=== PATIENT | female | born 1995 | race Caucasian/White ===

== ENCOUNTER 2017-05-17 09:54 | Outpatient (CLI) | payer BC ==
[~2017-05-17] VITALS: Ht 165.1 cm; Wt 75.7 kg
[~2017-05-17 09:54] MED LIST: CEPH-13 PO; LOR5/325 PO
[2017-05-17 10:38] LABS: PLATELET COUNT, AUTOMATED 217 K/uL (150-450)
[2017-05-17] MEDS: LR(*) 1000 ML BAG 1,000 ML IV PRN ×2 (10:42→11:40)
[2017-05-17 11:49] VITALS: BP 129/69; Ht 165.1 cm; Wt 75.7 kg
--- NOTE | 2017-05-17 13:10 | History & Physical ---
History of Present Illness Age of Patient: 21 : 1 Para or TPAL: 0 Estimated Gestational Age: 33.0 Chief Complaint Abdominal pain History of Present Illness Pt is a 21 y/o @ 33 weeks gestation who presents to clinic with a chief complaint of abdominal pain. Pt reports that while she was working she had significant lower abdominal pain that went the the left side. Pt reports the pain was excrutiating and felt like she was getting stabbed. Denies any bleeding. Denies any fevers or chills. Good movement. No cramps or contractions. History Obstetrical History: Past Medical History: Allergic to Sulfa Allergies: Coded Allergies: Sulfa (Sulfonamide Antibiotics) (Verified Allergy, Unknown, HIVES, 05/17/17) Uncoded Allergies: ANTIBIOTIC (Adverse Reaction, Mild, 09/11/16) Med Rec Home Meds Active Scripts Hydrocodone Bit/Acetaminophen (HYDROCODON-ACETAMINOPHEN 5-325) 1 Each Tablet, 1 EACH PO Q4-6H Y for PAIN, #12 TAB 0 Refills TAKE ONE TABLET BY MOUTH EVERY 4-6 HOURS NEEDED FOR PAIN Prov:RUFINO PETIT MD 09/11/16 Cephalexin (KEFLEX) 500 Mg Capsule, 500 MG PO Q6H, #20 CAP 0 Refills TAKE ONE CAPSULE BY MOUTH EVERY SIX HOURS Prov:RUFINO PETIT MD 09/11/16 Review of Systems All Systems Reviewed/Normal: Yes, Except as Noted Constitutional: No Fever, No Weight Loss, No Weight Gain, No Chills, No Night Sweats, No Other Neurological: No Syncope, No Confusion, No Weakness, No Dizziness, No Slurred Speech, No Other Eyes: No Vision Change, No Loss of Vision, No Photophobia, No Other ENT: No Hearing Loss, No Sinus Congestion, No Sore Throat, No Ear Ache, No Tinnitus, No Other Cardiovascular: No Chest Pain, No Palpitations, No Orthostatic Hypotension, No Other Respiratory: No Shortness of Breath, No Cough, No Wheezing, No Other Gastrointestinal: No Nausea, No Vomiting, No Diarrhea, No Dysphagia, No Constipation, No Early Satiety, No Hematemesis, No Hematochezia, No Melena, No Abdominal Pain, No Other Genitourinary: No Dysuria, No Hematuria, No Urinary Incontinence, No Other Musculoskeletal: No Pain, No Sprain, No Strain, No Impaired Mobility, No Other Psychiatric: No Depression, No Anxiety, No Other Exam General Exam Vital Signs Vital Signs Date Time Temp Pulse Resp B/P (MAP) Pulse Ox O2 Delivery O2 Flow Rate FiO2 05/17/17 11:49 98.1 104 16 129/69 (89) Room Air General Apperance: Alert/Awake/No Acute Distress Neuro: No Gross deficits Eyes: Normal Extraocular Movement & Vison, PERRLA ENT: Normal Cardiovascular: Regular Rate and Rhythm Respiratory: No Respiratory Distress, Clear to Auscultation Abdomen: Soft, Non-Tender, Non-Distended, Gravid - Non-Tender : Normal Musculoskeletal: No Weakness/Pain Extremities: No Cyanosis,Clubbing or Edema Integumentary: Skin Intact without Lesions or Rash Psychological: Alert & Oriented X3, Appropriate Mood & Affect Cervical Dialation: 0.5 Cervical Effacement (%): 20 Cervical Consistency: Firm Cervical Position: Posterior Station: -3 Fetus Heart Tones: 130 Heart Tone Variabilty: Moderate FHT Accelerations: Present FHT Decelerations: None FHT Category: I Medical Decision Making Data Points Result Diagram: 05/17/17 1030 Pre-Admit Course Medical Record Review: Yes VTE Prophylasis: Adult Deep Vein Thrombosis/Pulmonary: No Assessment and Plan [employer] Assessment: Stable Problems: (1) Urinary tract infection Status: Acute Assessment & Plan: IV fluids and 1 gm ceftriaxone, Urine culture. D/c home with macrobid RX. Copies to: CHARLOTTE VALENZUELA DO Problem Qualifiers (1) Urinary tract infection: Urinary tract infection type: acute cystitis CHARLOTTE VALENZUELA DO May 17, 2017 13:10
[2017-05-17] MEDS ORDERED: cefTRIAXone(*) 1 GM VIAL 1 GM in NS(*) 0.9% 100 ML ADDVANT BAG 100 ML IVPB ONE (13:15)
[2017-05-17] MEDS ORDERED: PREN-127 PO (14:28)
== END 2017-05-17 14:22 | disposition home or self-care (01) ==
LOC: OB 09:54 → UNDOADMOB 09:54 → OB 09:54 → L&D 09:54 → UNDODISOB 14:22 → L&D 14:22 → EDSTATUS 05-19 16:15
PROVIDERS: ATTEND Student in an Organized Health Care Education/Training Program
DX: O23.43 Unspecified infection of urinary tract in pregnancy, third trimester (principal); Z3A.33 33 weeks gestation of pregnancy
CPT/HCPCS: 81001; 84112; 85025; 87077; 87088; 87186; 99213; J0696; J7050; J7120; G0378; G0379

== ENCOUNTER 2017-07-03 22:34 | Outpatient (CLI) | payer BC ==
[2017-05-17 11:49] VITALS: BMI 27.8
[~2017-07-03 22:34] MED LIST changes: +PREN-127 PO
[2017-07-03 23:15] VITALS: BP 124/75
== END 2017-07-04 00:13 | disposition home or self-care (01) ==
LOC: L&D 22:34 → UNDOADMOB 22:34 → OB 22:34 → L&D 07-04 00:13 → UNDODISOB 07-04 00:13 → EDSTATUS 07-05 10:47
PROVIDERS: ATTEND Student in an Organized Health Care Education/Training Program
DX: O47.1 False labor at or after 37 completed weeks of gestation (principal); Z3A.39 39 weeks gestation of pregnancy
CPT/HCPCS: 81001; 84112; 99213; G0378; G0379

== ENCOUNTER 2017-07-09 18:57 | Inpatient (IN) | payer BC ==
[2017-05-17 11:49] VITALS: Ht 160 cm
[2017-07-09] MEDS ORDERED: FAMOTIDINE(*) 20MG/50ML PREMIX 50 ML IVPB PRN (19:02)
[2017-07-09] MEDS ORDERED: METOCLOPRAMIDE 10 MG/2 ML SDV IVP PRN (19:05)
[2017-07-09] MEDS ORDERED: FLUSH 10 ML SYR IVP PRN (19:05)
[2017-07-09] MEDS ORDERED: fentaNYL CITR 100 MCG/2 ML AMP IVP PRN (19:05)
[2017-07-09] MEDS ORDERED: LIDOCAINE/SOD BICARB 8.4% SYR SC PRN (19:05)
[2017-07-09] MEDS ORDERED: DINOPROSTONE 10 MG INSERT PV ONE (19:05)
[2017-07-09] MEDS ORDERED: LIDOCAINE 1% LOCAL 300 MG/30ML INJ PRN (19:05)
[2017-07-09 19:44] LABS: PLATELET COUNT, AUTOMATED 190 K/uL (150-450)
[2017-07-09] MEDS ORDERED: DLR(*) 1000 ML BAG 1,000 ML IV ONE (20:04)
[2017-07-09] MEDS ORDERED: LR(*) 1000 ML BAG 1,000 ML ONE (20:05)
[2017-07-09 20:30] VITALS: BP 116/70
[2017-07-10] MEDS ORDERED: DINOPROSTONE 10 MG INSERT PV ONE (00:06)
[2017-07-10] MEDS ORDERED: OXYTOCIN 30 UNIT/D5LR 500 ML 500 ML IV PRN (02:59)
[2017-07-10] MEDS ORDERED: ONDANSETRON 4 MG/2 ML VIAL IVP PRN (03:00)
[2017-07-10] MEDS ORDERED: cefOXitin SOD 2 GM VIAL 2 GM in NS(*) 0.9% 100 ML BAG 100 ML IVPB PRN (03:00)
[2017-07-10] MEDS ORDERED: TERBUTALINE SULF 1 MG/ML VIAL SUBQ PRN (03:00)
[2017-07-10] MEDS ORDERED: ACETAMINOPHEN 500 MG TAB PO PRN (03:05)
[2017-07-10] MEDS: DLR(*) 1000 ML BAG 1,000 ML IV PRN ×2 (03:55→12:23)
[2017-07-10] MEDS: LR(*) 1000 ML BAG 1,000 ML IV PRN (06:40)
--- NOTE | 2017-07-10 07:31 | History & Physical ---
History of Present Illness Age of Patient: 21 : 2 Para or TPAL: 0 EDC per LMP: July 05, 2017 Estimated Gestational Age: 40.5 Chief Complaint IOL History of Present Illness The patient is a 21 year old 2 para 0 admitted at 40 5/7 weeks estimated gestational age with an estimated date of delivery 07/05/17. Patient is admitted for induction post term. No vaginal bleeding. Good movement and occasional contractions. She was evaluated for active labor. She had an uncomplicated course. Her record was reviewed. History Allergies: Coded Allergies: Sulfa (Sulfonamide Antibiotics) (Verified Allergy, Unknown, HIVES, 05/17/17) Uncoded Allergies: ANTIBIOTIC (Adverse Reaction, Mild, 09/11/16) Med Rec Home Meds Reported Medications Vits W-Ca,Fe,Fa(<1MG) ( VITAMINS) 1 Each Tablet, 1 EACH PO DAILY, TAB 05/17/17 Exam General Exam Vital Signs Vital Signs Date Time Temp Pulse Resp B/P (MAP) Pulse Ox O2 Delivery O2 Flow Rate FiO2 07/09/17 20:30 98.5 99 18 116/70 (85) 95 Room Air Cardiovascular: Regular Rate and Rhythm Respiratory: Clear to Auscultation Abdomen: Gravid - Non-Tender Extremities: No Edema Cervical Dialation: 1 (RN) Cervical Effacement (%): 80 Cervical Position: Posterior Station: -2 Presentation: Vertex Uterine Contractions(Q min): 3 Fetus Heart Tones: 120 FHT Category: I Medical Decision Making Data Points Result Diagram: 07/09/171918 Assessment and Plan Problems: (1) Post-dates Assessment & Plan: cervadil placed for induction agent, will monitor for cervical change Copies to: ROSA HOLDEN MD Problem Qualifiers (1) Post-dates : Post-term type: 40-42 weeks gestation Qualified Codes: O48.0 - Post -term ROSA HOLDEN MD Jul 10, 2017 07:30
[2017-07-10] MEDS ORDERED: BUPIVACAINE 0.5% INJ 30ML VIAL EPI PRN (10:45)
[2017-07-10] MEDS ORDERED: LIDOCAINE/PF 2% 200MG/10ML AMP 200 MG/10 ML AMPUL EPI PRN (10:45)
[2017-07-10] MEDS ORDERED: FENTANYL/ROPIVACAINE 100 ML BAG EPI PRN (10:45)
[2017-07-10] MEDS ORDERED: ePHEDrine 25 MG/5 ML DISP.SYR IVP PRN (10:45)
[2017-07-10] MEDS ORDERED: LIDO/EPI 2% MPF 1:200,000 20ML EPI PRN (10:45)
[2017-07-10] MEDS ORDERED: BUPIVACAINE 0.25% MPF INJ EPI PRN (10:45)
[2017-07-10] MEDS ORDERED: EPIDURAL KEYS XX PRN (12:00)
[2017-07-10] MEDS ORDERED: LIOTHYRONINE SODIUM 25 MCG TAB PO ONE (14:00)
[2017-07-10] MEDS ORDERED: MISOPROSTOL 25 MCG CAP ONE (14:08)
--- NOTE | 2017-07-10 14:13 | Labor Progress Note ---
Labor Subjective Progress Notes Subjective FEELING CONTRACTIONS OCCASIONALLY Vaginal Discharge/Fluid: No Bloody Show Labor Pain: Mild Labor Objective Vital Signs Vital Signs Date Time Temp Pulse Resp B/P (MAP) Pulse Ox O2 Delivery O2 Flow Rate FiO2 07/09/17 20:30 98.5 99 18 116/70 (85) 95 Room Air Cervical Dialation: 1 Cervical Effacement (%): 75 Cervical Consistency: Moderate Cervical Position: Mid Station: -1 Presentation: Vertex Uterine Contractions(Q min): 7 Uterine Contraction Strength: Mild Fetus Heart Tones: 130 Heart Tone Variabilty: Moderate FHT Accelerations: 15X15 FHT Category: I Other Result Diagram: 07/09/171918 Assessment and Plan Problems: (1) Post-dates Assessment & Plan: NO CHANGE FROM CERVADIL, CYTOTEC 25 PLACED WILL MONITOR FOR CHANGE Problem Qualifiers (1) Post-dates : Post-term type: 40-42 weeks gestation Qualified Codes: O48.0 - Post -term ROSA HOLDEN MD Jul 10, 2017 14:13
[2017-07-10] MEDS: fentaNYL CITR 100 MCG/2 ML AMP IT PRN (21:38)
[2017-07-11] VITALS (10 sets, daily range): BP systolic 104–125; BP diastolic 70–82
[2017-07-11] MEDS ORDERED: MISOPROSTOL 25 MCG CAP PV ONE (00:20)
[2017-07-11] MEDS ORDERED: MISOPROSTOL 25 MCG CAP ONE (00:34)
[2017-07-11] MEDS: DLR(*) 1000 ML BAG 1,000 ML IV PRN ×2 (01:32→12:26)
[2017-07-11] MEDS ORDERED: ZOLPIDEM TARTRATE 5 MG TAB PO ONE (02:20)
[2017-07-11] MEDS ORDERED: OXYTOCIN 30 UNIT/D5LR 500 ML 500 ML IV PRN ×3 (04:50→21:08)
[2017-07-11] MEDS: fentaNYL CITR 100 MCG/2 ML AMP IT PRN (07:29)
--- NOTE | 2017-07-11 09:06 | Anesthesia OB Pre-Anes Eval ---
History of Present Illness Anesthesia Start Date: Jul 11, 2017 Anesthesia Start Time: 07:40 OB Anesthesia Diagnosis: induction - medical Current Complication: other (post dates) Complications: None known EDC: July 04, 2017 : 2 Para: 0 Vital Signs: Vital Signs Date Time Temp Pulse Resp B/P (MAP) Pulse Ox O2 Delivery O2 Flow Rate FiO2 07/09/17 20:30 98.5 99 18 116/70 (85) 95 Room Air Pain Ratin Heart Tones: WNL Result Diagram: 07/09/17 1919 Height (Inches): 63 Weight (Pounds): 167 BMI Calculated: 27.79 Past Medical History Surgical History: other (correction of spinal bifida as an infant, no problems now) Previous Anesthesia: general Attended Childbirth Classes?: No Hx Anesthesia Reactions: No Hx Family Anesthesia Reaction: No Current Medications: pitocin Home Meds Reported Medications Vits W-Ca,Fe,Fa(<1MG) ( VITAMINS) 1 Each Tablet, 1 EACH PO DAILY, TAB 05/17/17 Allergies: Coded Allergies: Sulfa (Sulfonamide Antibiotics) (Verified Allergy, Unknown, HIVES, 05/17/17) Uncoded Allergies: ANTIBIOTIC (Adverse Reaction, Mild, 09/11/16) Anesthesia OB ROS Neurological: No migraines/headaches, No seizures, No neuropathy ENT: Denies Tooth caps, Denies Loose teeth, Denies Chipped teeth, Denies Dentures, Denies Bridges, Denies Retainers, Denies Veneers, Denies Implants, Denies Tongue ring Pulmonary: No asthma, smoker (pks/day/yrs) ("quiting"), No other Airway Class: ll Cardiovascular ROS: No edema, No arrhythmia GI ROS: clear liquids Last Solids Date: Jul 10, 2017 Last Solids Time: 22:00 ROS: No Herpes, No STD(s), No Liver Disease, No Renal Disease Endocrine ROS: No diabetes, No gestational diabetes, No thyroid disorder Musculoskeletal ROS: No low back pain, No low back injury, No scoliosis, other (denies any back problems) ASA Classification: 2 Assessment and Plan Anesthesia Plan: CSE Assessment Past Medical, Surgical, Family and Obstetric Histories reviewed. Please see ACOG chart. Epidural anesthesia risks, complications and benefits explained to patient's satisfaction for labor and vaginal delivery and/or section. General anesthesia risks and benefits explained to patient's satisfaction. Questions invited, none asked. MALIK BLEVINS CRNA Jul 11, 2017 09:06
--- NOTE | 2017-07-11 09:27 | Labor Progress Note ---
Labor Subjective Progress Notes Subjective COMFORTABLE WITH EPIDURAL Vaginal Discharge/Fluid: Clear Fluid Labor Pain: Comfortable Labor Objective Vital Signs Vital Signs Date Time Temp Pulse Resp B/P (MAP) Pulse Ox O2 Delivery O2 Flow Rate FiO2 07/09/17 20:30 98.5 99 18 116/70 (85) 95 Room Air Cervical Dialation: 4 Cervical Effacement (%): 95 Cervical Consistency: Soft Cervical Position: Anterior Station: -1 Presentation: Vertex Uterine Contractions(Q min): 5 Uterine Contraction Strength: Moderate Fetus Heart Tones: 120 Heart Tone Variabilty: Moderate FHT Accelerations: 15X15 FHT Category: I Other Result Diagram: 07/09/171918 Assessment and Plan Problems: (1) Post-dates (2) Active labor at term Assessment & Plan: IUPC PLACED WILL MONITOR FOR CERVICAL CHANGE Problem Qualifiers (1) Post-dates : Post-term type: 40-42 weeks gestation Qualified Codes: O48.0 - Post -term ROSA HOLDEN MD Jul 11, 2017 09:27
--- NOTE | 2017-07-11 09:30 | Procedure Note ---
Anesthetic Placement Note Anesthesia Plan: CSE Permit for Anesthesia Signed: Yes Anesthesia Technique: Patient Sitting Anesthesia Prep: Chlorhexidine Interspace: L 3-4 Local Anesthetic: 1% Lidocaine, 25 Gauge Needle Amount Local - cc's: 2 Anesthesia Attempts: 1 Loss of Resistance: Air Depth of VIVI (cm): 4 Epidural Needle Placement: No CSF, No Blood, No Parasthesia Intrathecal Needle: 27 Gauge Pencan Cerebral Spinal Fluid: Yes, Clear Catheter Insertion (cm): 6 Catheter Type: Prieto - Spring Wound Epidural Dressing: Tegaderm, Tape, Adhesive [place] Anesthesia Tray: Lot Number ([id number]), Expiration Date (2018-09-08), Reference Number ([id number]) Anesthesia Medications: Intrathecal Dose: mcg Fentanyl (15), mg Marcaine MPF (1.75), Time (0755) Epidural Test Dose: 1.5 Lido/Epi (1:200,000), Dose - mL (2), Time (0807), Negative Epidural Loading Dose: 0.2% Ropivicaine, With Fentanyl 2mcg/ml, Dose - ml (5), Time (0820) Epidural Infusion: 0.2% Ropivicaine, With Fentanyl 2mcg/ml, Start Time: (0821) Epidural Pump Setting: Bolus Dose - mL (5), Lockout - Minutes (20), Maintenance Rate - mL/hr (6), Maximum per Hour - mL (21) Complications: None Comment: Vital signs stable. Patient comfortable and condition stable. Mild itching noted. MALIK BLEVINS CRNA Jul 11, 2017 09:30
--- NOTE | 2017-07-11 09:40 | Anesthesia Progress Note ---
Progress/Maintenance Anesthesia Note Date: Jul 11, 2017 Anesthesia Note Time: 09:30 Pain Intensity: 0 Pump: Off Sensory Level: T-12 Motor Level: Bending Knees-Bilateral, Other (legs heavy) Dilatation: 4 Position: Left, Tilt Assessment and Plan Anesthesia Plan: CSE Assessment Pt. requesting less epidural medication. Pump turned off and pt. instructed to notify RN when she starts to feel contractions again. MALIK BLEVINS CRNA Jul 11, 2017 09:40
[2017-07-11] MEDS: LR(*) 1000 ML BAG 1,000 ML IV PRN ×2 (12:26→18:10)
--- NOTE | 2017-07-11 12:29 | Anesthesia Progress Note ---
Progress/Maintenance Anesthesia Note Date: Jul 11, 2017 Anesthesia Note Time: 12:25 Pain Intensity: 0 Pump: On Pump Rate (ML/HR): 4 Motor Level: Bending Knees-Bilateral Dilatation: 6 Position: Left, Tilt Assessment and Plan Assessment Pt. thinks she is starting to feel some "pressure", not specifically contraction type. Pump restarted at 4 ml/hr. MALIK BLEVINS CRNA Jul 11, 2017 12:29
--- NOTE | 2017-07-11 13:02 | Anesthesia Progress Note ---
Progress/Maintenance Anesthesia Note Date: Jul 11, 2017 Anesthesia Note Time: 12:50 Pain Intensity: 8 Pump: On Pump Rate (ML/HR): 4 Sensory Level: L2 Motor Level: Bending Knees-Bilateral Dilatation: 7 Position: Left, Tilt Drug Bolus: 0.2% Ropivicaine, Fentanyl 2mcg/ml, Other (Fentenyl 50 mcgs) Assessment and Plan Assessment Pt. states she is feeling more contractions now, rates pain as a "8". Bolus per pump and additional fentanyl given. MALIK BLEVINS CRNA Jul 11, 2017 13:02
--- NOTE | 2017-07-11 15:15 | Labor Progress Note ---
Labor Subjective Progress Notes Subjective have been receiving updates of adequate progress, patient comfortable with epidural Vaginal Discharge/Fluid: Bloody Show Labor Pain: Comfortable Labor Objective Vital Signs Vital Signs Date Time Temp Pulse Resp B/P (MAP) Pulse Ox O2 Delivery O2 Flow Rate FiO2 07/09/17 20:30 98.5 99 18 116/70 (85) 95 Room Air Cervical Dialation: 7 Cervical Effacement (%): 100 Cervical Consistency: Soft Cervical Position: Anterior Station: +1 Presentation: Vertex Uterine Contractions(Q min): 3 Uterine Contraction Strength: Strong Fetus Heart Tones: 120 Heart Tone Variabilty: Moderate FHT Accelerations: 15X15 FHT Category: I Other Result Diagram: 07/09/179 Assessment and Plan Problems: (1) Post-dates (2) Active labor at term Assessment & Plan: patient making progress, will monitor for change in cervix Problem Qualifiers (1) Post-dates : Post-term type: 40-42 weeks gestation Qualified Codes: O48.0 - Post -term ROSA HOLDEN MD Jul 11, 2017 15:15
--- NOTE | 2017-07-11 16:42 | Labor Progress Note ---
Labor Subjective Progress Notes Subjective reports feeling pressure Vaginal Discharge/Fluid: Bloody Show Labor Objective Vital Signs Vital Signs Date Time Temp Pulse Resp B/P (MAP) Pulse Ox O2 Delivery O2 Flow Rate FiO2 07/09/17 20:30 98.5 99 18 116/70 (85) 95 Room Air Cervical Dialation: 8 Cervical Effacement (%): 100 Cervical Consistency: Soft Cervical Position: Anterior Station: +1 Presentation: Vertex Uterine Contractions(Q min): 3 Uterine Contraction Strength: Strong Fetus Heart Tones: 130 Heart Tone Variabilty: Moderate FHT Accelerations: 15X15 FHT Category: I Other Result Diagram: 07/09/17 1919 Assessment and Plan Problems: (1) Post-dates (2) Active labor at term Assessment & Plan: continues to make cervical change will continue to monitor progress in labor Problem Qualifiers (1) Post-dates : Post-term type: 40-42 weeks gestation Qualified Codes: O48.0 - Post -term ROSA HOLDEN MD Jul 11, 2017 16:42
--- NOTE | 2017-07-11 17:36 | Labor Progress Note ---
Labor Subjective Progress Notes Subjective feeling pressure Vaginal Discharge/Fluid: Bloody Show, Green Tinged Fluid Labor Pain: Mild Labor Objective Vital Signs Vital Signs Date Time Temp Pulse Resp B/P (MAP) Pulse Ox O2 Delivery O2 Flow Rate FiO2 07/09/17 20:30 98.5 99 18 116/70 (85) 95 Room Air Cervical Dialation: 9 Station: +1 Presentation: Vertex Uterine Contractions(Q min): 4 Uterine Contraction Strength: Strong Fetus Heart Tones: 120 Heart Tone Variabilty: Moderate FHT Accelerations: 15X15 FHT Category: I Other Result Diagram: 07/09/171918 Assessment and Plan Problems: (1) Post-dates (2) Active labor at term Assessment & Plan: continues to make cervical change, suspect LOP, will continue to monitor for change and descent of vertex Problem Qualifiers (1) Post-dates : Post-term type: 40-42 weeks gestation Qualified Codes: O48.0 - Post -term ROSA HOLDEN MD Jul 11, 2017 17:36
--- NOTE | 2017-07-11 18:56 | Anesthesia Progress Note ---
Progress/Maintenance Anesthesia Note Date: Jul 11, 2017 Anesthesia Note Time: 18:30 Pain Intensity: 6 Pump: On Pump Rate (ML/HR): 6 Sensory Level: T-12 Motor Level: Bending Knees-Bilateral Dilatation: 9 Position: Right, Tilt Drug Bolus: 0.5% Marcaine (3 ml), Other (Fentanyl 35 mcgs) Assessment and Plan Assessment Pt. states she is having more "pressure", epidural bolus per machine given. 15 minutes later, pt. does not feel any improvement in "pressure". Manual bolus given. At 1845, pt. is visiting and joking with family, states she now feels better. MALIK BLEVINS CRNA Jul 11, 2017 18:56
--- NOTE | 2017-07-11 19:06 | Labor Progress Note ---
Labor Subjective Progress Notes Subjective feeling pressure Vaginal Discharge/Fluid: Green Tinged Fluid Labor Pain: Mild Labor Objective Vital Signs Vital Signs Date Time Temp Pulse Resp B/P (MAP) Pulse Ox O2 Delivery O2 Flow Rate FiO2 07/09/17 20:30 98.5 99 18 116/70 (85) 95 Room Air Cervical Dialation: 9 Station: +1 Presentation: Vertex Uterine Contractions(Q min): 4 Uterine Contraction Strength: Strong Fetus Heart Tones: 130 Heart Tone Variabilty: Moderate FHT Accelerations: 15X15 FHT Category: I Other Result Diagram: 07/09/171918 Assessment and Plan Problems: (1) Post-dates (2) Active labor at term Assessment & Plan: feeling presure, no change in cervix, LOP, unable to manually rotate. patient desire to proceed with c section for ftp Problem Qualifiers (1) Post-dates : Post-term type: 40-42 weeks gestation Qualified Codes: O48.0 - Post -term ROSA HOLDEN MD Jul 11, 2017 19:06
[2017-07-11] MEDS ORDERED: OXYTOCIN 10 UNIT/ML SDV ONE (19:42)
[2017-07-11] MEDS ORDERED: KETOROLAC 30 MG/ML VIAL ONE (19:42)
[2017-07-11] MEDS ORDERED: MORPHINE PF 5 MG/10 ML AMP ONE (19:42)
[2017-07-11] MEDS ORDERED: MEPERIDINE 50 MG/ML SYR ONE (19:48)
[2017-07-11] MEDS ORDERED: FAMOTIDINE(*) 20MG/50ML PREMIX 50 ML IVPB PRN (21:08)
[2017-07-11] MEDS ORDERED: MEASLES,MUMP,RUBELLA VAC 0.5ML SUBQ ONE (21:10)
[2017-07-11] MEDS ORDERED: METOCLOPRAMIDE 10 MG/2 ML SDV IV PRN (21:10)
[2017-07-11] MEDS ORDERED: DIPHENOX/ATROPINE 2.5-0.025MG PO PRN (21:10)
[2017-07-11] MEDS ORDERED: ONDANSETRON 4 MG/2 ML VIAL IV PRN (21:10)
[2017-07-11] MEDS ORDERED: PROMETHAZINE 25 MG/ML 1 ML AMP IVP PRN (21:10)
[2017-07-11] MEDS ORDERED: FLUSH 10 ML SYR IVP PRN (21:10)
[2017-07-11] MEDS ORDERED: INFLUENZA VIRUS VAC 0.5 ML SYR IM ONLY ONE (21:10)
[2017-07-11] MEDS ORDERED: DIPHTH/TETANUS/ACEL. PERTUSSIS IM ONLY ONE (21:10)
[2017-07-11] MEDS ORDERED: LANOLIN OINT 7 GM TUBE TP PRN (21:10)
--- NOTE | 2017-07-11 21:17 | Post Operative Note ---
Operative Note - COLLECTIONS ANALYST Operative Day Date: Jul 11, 2017 Time: 20:40 Physicians Surgeon: ADINA Supervisor Slitting And Shipping: KEENAN HERNANDEZ RN FA Anesthesia: FELICITY Diagnosis Pre-Op Diagnosis: IUP AT 40 6/7 FAILURE TO PROGRESS Post-Op Diagnosis: SAME UTERINE ATONY Procedure Findings: MALE APGARS 8,9 WT. 3502 GMS ATONIC UTERUS 3 DOSES OF METHERGINE, 1 DOSE OF HEMABATE 800 CYTOTEC MT PITOCIN [id number] Procedure(s): PLTCS Complications: UTERINE ATONY Fluids Fluids: 1000 CC LR IV 100 CC UOP Estimated Blood Loss: 1000 CC Dictated Date OP Note Dictated: Jul 11, 2017 Time OP Note Dictated: 21:25 Copies to: ROSA HOLDEN MD, JOHN MD Jul 11, 2017 21:16
--- NOTE | 2017-07-11 21:28 | Anesthesia Progress Note ---
Progress/Maintenance Anesthesia Note Date: Jul 11, 2017 Anesthesia Note Time: 19:00 Pain Intensity: 0 Pump: Off Dilatation: 9 Position: Left, Tilt Assessment and Plan Assessment Changing to E C/Section. Dosing with 2% Lidocaine with Epi in 5 ml increments. Level of T-4 after only 10 ml. Pt. very restless and upset by her "shaking". Reassurance given. To OR per bed, stopping in PACU, waiting on OR crew. Anesthesia Stop Day: Jul 11, 2017 Anesthesia Stop Time: 21:20 Epidural Catheter Removal: Removed Catheter Intact, Yes, Removed by: (Purnima Tate CRNA) Removal Date: Jul 11, 2017 Removal Time: 21:05 MALIK TATE CRNA Jul 11, 2017 21:27
[2017-07-11] MEDS ORDERED: NALBUPHINE HCL 10 MG/ML AMP IVP PRN (21:30)
[2017-07-11] MEDS ORDERED: diphenhydrAMINE 25 MG CAP PO PRN (21:30)
[2017-07-11 21:56] LABS: PLATELET COUNT, AUTOMATED 159 K/uL (150-450)
[2017-07-12] VITALS (8 sets, daily range): BP systolic 109–122; BP diastolic 70–85
[2017-07-12] MEDS: MISOPROSTOL 200 MCG TAB PO SCH ×4 (01:15→18:13)
[2017-07-12] MEDS: DLR(*) 1000 ML BAG 1,000 ML IV PRN ×2 (01:15→09:25)
[2017-07-12] MEDS: cefOXitin/DEX(*) 1GM/50ML PREM 50 ML IVPB SCH ×4 (01:15→18:12)
[2017-07-12 05:57] LABS: PLATELET COUNT, AUTOMATED 128 K/uL (150-450)
[2017-07-12] MEDS: KETOROLAC 30 MG/ML VIAL IVP SCH ×2 (05:57→12:39)
--- NOTE | 2017-07-12 08:39 | OB/GYN Progress Note ---
OB Subjective Progress Notes Subjective Pain controlled, Tolerating diet and some dizziness the first time she sat up. Baby . Normal lochia. GI: POS Flatus, NEG Nausea, NEG Vomiting Pain: Mild OB Objective Physical Exam Vital Signs Date Time Temp Pulse Resp B/P (MAP) Pulse Ox O2 Delivery O2 Flow Rate FiO2 07/12/17 04:30 98.9 96 16 109/70 (83) 94 Room Air 07/12/17 01:45 2.0 Cardiovascular: Regular Rate and Rhythm Respiratory: Clear to Auscultation Abdomen: Fundus Firm Extremities: No Edema Result Diagram: 07/12/17 0545 Assessment and Plan Problems: (1) Post-dates (2) Active labor at term (3) care following delivery Assessment & Plan: Pain controlled, Tolerating diet and some dizziness the first time she sat up. Baby . Normal lochia. Will ambulate later today (4) Acute blood loss anemia Assessment & Plan: WILL TREAT WITH IRON AND MONITOR FOR SYMPTOMS OF ANEMIA Problem Qualifiers (1) Post-dates : Post-term type: 40-42 weeks gestation Qualified Codes: O48.0 - Post -term ROSA HOLDEN MD Jul 12, 2017 08:39
[2017-07-12] MEDS: DOCUSATE CALCIUM 240 MG CAP PO SCH ×2 (09:00→22:05)
[2017-07-12] MEDS: FERROUS SULFATE 325 MG TAB PO SCH ×2 (09:04→18:13)
[2017-07-12] MEDS: SIMETHICONE 80 MG CHEW CHEW SCH ×4 (09:04→22:05)
[2017-07-12] MEDS: FAMOTIDINE 20 MG TAB PO SCH ×2 (09:04→22:05)
[2017-07-12] MEDS ORDERED: OXYC-373 PO (09:05)
[2017-07-12] MEDS ORDERED: IBUP800T37 PO (09:05)
[2017-07-12] MEDS ORDERED: FERR-41 PO (09:05)
[2017-07-12] MEDS ORDERED: DOCU240C67 PO (09:05)
--- NOTE | 2017-07-12 09:07 | OB/GYN Discharge Summary ---
Discharge Summary Reason for Hosp/Final Diag: (1) Post-dates (2) Active labor at term (3) care following delivery Hospital Course & Plan: IOL, SLOW PROGRESS, PROGRESSED TO 9 CM THEN FAILED TO PROGRESS, OP, PLTCS WITH UTERINE ATONY,ON DAY 3 , Pain controlled, Tolerating diet and activity. Baby . Normal lochia. (4) Acute blood loss anemia Lates Vital Signs Vital Signs Date Time Temp Pulse Resp B/P (MAP) Pulse Ox O2 Delivery O2 Flow Rate FiO2 07/12/17 04:30 98.9 96 16 109/70 (83) 94 Room Air 07/12/17 01:45 2.0 Weight (Pounds): 167 Result Diagram: 07/12/17 0545 Condition: Improved Discharge: Home, Self [facility] Meds Active Scripts Oxycodone Hcl/Acetaminophen (OXYCODONE-ACETAMINOPHEN 5-325) 1 Each Tablet, 1-2 EACH PO Q4H Y for PAIN, #30 TAB 0 Refills TAKE 1-2 TABLET NEEDED FOR PAIN - NO CLOSER THAN EVERY 4 HOURS. Prov:ROSA BRUNNER MD 07/12/17 Ibuprofen (IBUPROFEN) 800 Mg Tablet, 1 TAB PO Q8H, #30 TAB 0 Refills Take with food every 8 hours. Prov:ROSA BRUNNER MD 07/12/17 Ferrous Sulfate (FERROUS SULFATE) 325 Mg Tablet.dr, 1 TAB PO BID, #60 TAB 0 Refills Prov:ROSA BRUNNER MD 07/12/17 Docusate Calcium (DOCUSATE CALCIUM) 240 Mg Capsule, 1 CAP PO BID, #30 CAPSULE 0 Refills Prov:ROSA BRUNNER MD 07/12/17 Reported Medications Vits W-Ca,Fe,Fa(<1MG) ( VITAMINS) 1 Each Tablet, 1 EACH PO DAILY, TAB 05/17/17 Follow up with: Dr. Brunner [phone] Follow up in: 6 wks PP or PO, 2 wks PO Discharge Diet: As Tolerates Discharge Activity: Pelvic Rest Copies to: ROSA BRUNNER MD Problem Qualifiers (1) Post-dates : Post-term type: 40-42 weeks gestation Qualified Codes: O48.0 - Post -term ROSA BRUNNER MD Jul 12, 2017 09:07
[2017-07-12] MEDS: IBUPROFEN 800 MG TAB PO SCH (18:13)
[2017-07-13] MEDS ORDERED: IBUPROFEN 800 MG TAB PO SCH (01:00)
[2017-07-13 04:30] VITALS: BP 99/55
[2017-07-13] MEDS: IBUPROFEN 800 MG TAB PO SCH ×3 (04:30→20:31)
--- NOTE | 2017-07-13 04:40 | OPERATIVE REPORT 1 ---
EVENT DATE: July 11, 2017 SURGEON: Tolu Brunner MD ANESTHESIOLOGIST: Yolie Tate CRNA ANESTHESIA: Combined spinal epidural EMPLOYEE BENEFITS MANAGER: Tatum He RN, BSN PREOPERATIVE DIAGNOSIS 1. Intrauterine at 40 and 6/7 weeks estimated gestational age. 2. Failure to progress. POSTOPERATIVE DIAGNOSIS 1. Intrauterine at 40 and 6/7 weeks estimated gestational age. 2. Failure to progress. 3. Uterine atony. PROCEDURE PERFORMED Primary low transverse section. COMPLICATIONS Uterine atony. FLUIDS 1000 mL of lactated ringers IV. URINE OUTPUT 100 mL. ESTIMATED BLOOD LOSS 1000 mL. INDICATIONS The patient is a 21-year-old 1 who was admitted at 40 and 4/7 weeks estimated gestational age for induction of labor. She was given Cervidil on the evening of July 09, 2017, made very slow progress or no progress. On July 10 , was given Cytotec x two, and by July 11 was noted to be 3 cm. Artificial rupture of membranes was performed. She had received an epidural for pain control. At that time, she was 4 cm, made slow progress. She made slow but adequate progress through the day and got to 9 cm, and did not descend. She was ultrasounded, noted to be in the left occiput posterior position. Attempts to manually rotate were unsuccessful. 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 After discussion of risks and alternatives, the patient desired to proceed with primary C section. FINDINGS Male with Apgars 8 at one minute, 9 at five minutes. Weight was 3502 grams. She had an atonic uterus. She received three doses of Methergine, one dose of Hemabate and 800 mcg of Cytotec per rectum along with her Pitocin. DESCRIPTION OF PROCEDURE After informed consent was obtained, the patient was taken to the operating room with the IV running. She had an epidural that was adequate, and placed in a supine position with a leftward tilt, prepped and draped. Guillen catheter was already in place. A Pfannenstiel skin incision was made with a scalpel, carried through to the underlying layer of fascia with the Bovie. Fascia was nicked in the midline, extended laterally with Dhaliwal scissors bilaterally. The rectus muscles were dissected off the rectus fascia on the superior then inferior aspect of the incision. The rectus muscles were divided in the midline , peritoneum entered bluntly. Peritoneal incision was extended superiorly then inferiorly with good visualization of the bladder. Bladder blade was placed. A bladder flap was created with Metzenbaum scissors, and then the bladder blade was then replaced. A low transverse uterine incision made with the scalpel, and then extended laterally with digital technique of the pool table operator. The infant' s vertex was delivered through the uterine incision. The oropharynx and nasopharynx were bulb suctioned. The remainder of the infant delivered with ease. Dr. Gomez was veterinary medicine teacher in attendance for delivery. After cord was clamped x 2 and cut, the infant was passed to Dr. Gomez. Cord blood was obtained. Placenta delivered intact manually. Uterus was exteriorized and cleared of all clot and debris. Pitocin was added to the IV bag to help firm the uterus. Uterine incision was closed with #0-Vicryl in a running-locked fashion. A second imbricating layer of #0-Vicryl was used. Uterus remained atonic. 0.2 Methergine was given IM. Massage was performed. Posterior cul-de- sac was copiously irrigated. The uterus was left exteriorized until adequate tone was performed. After dose of Hemabate and another dose of Methergine, 800 mcg of Cytotec were given, and after observation, the uterus was returned to the abdominal cavity. The left and right paracolic gutter were cleared of all clot and debris. Uterus was then again massaged and had better tone. The peritoneum was then closed with 3- 0 Vicryl in a running fashion along with the rectus muscles. The subfascial compartment was inspected, any bleeding made hemostatic with the Bovie. Irrigation was performed. Fascia was closed with #0-Vicryl in a running fashion. Subcutaneous space was irrigated, any bleeding made hemostatic with Bovie. Subcutaneous space was approximated with 3-0 Vicryl in a running fashion , and then the skin was closed with sandeep. The uterus was expressed of clot along with the vagina, and she was given one additional dose of Methergine. Uterus appeared to have better tone by the end of the case, and was not actively bleeding. The patient was taken to the recovery room in stable condition. [facility]ITAL[facility]
[2017-07-13 06:15] LABS: PLATELET COUNT, AUTOMATED 155 K/uL (150-450)
[2017-07-13 06:35] VITALS: BP 104/61
[2017-07-13 07:40] VITALS: BP 99/58
--- NOTE | 2017-07-13 08:22 | OB/GYN Progress Note ---
OB Subjective Progress Notes Subjective Pain controlled, Tolerating diet and activity. Baby . Normal lochia. GI: POS Flatus, NEG Nausea, NEG Vomiting : Voiding Well Pain: Mild OB Objective Physical Exam Vital Signs Date Time Temp Pulse Resp B/P (MAP) Pulse Ox O2 Delivery O2 Flow Rate FiO2 07/13/17 06:35 97.5 75 18 104/61 (75) 07/13/17 04:30 94 Room Air 07/12/17 01:45 2.0 Intake and Output 07/14/17 06:59 Output Total 300 ml Balance -300 ml Output Urine Total 300 ml Cardiovascular: Regular Rate and Rhythm Respiratory: Clear to Auscultation Abdomen: Soft, Non-Tender, Non-Distended, Bowel Sounds Present, Fundus Firm Extremities: No Edema Result Diagram: 07/13/17 0547 Assessment and Plan Problems: (1) Post-dates (2) Active labor at term (3) care following delivery Assessment & Plan: Pain controlled, Tolerating diet and activity. Baby . Normal lochia. (4) Acute blood loss anemia Problem Qualifiers (1) Post-dates : Post-term type: 40-42 weeks gestation Qualified Codes: O48.0 - Post -term ROSA HOLDEN MD Jul 13, 2017 08:22
[2017-07-13] MEDS: FERROUS SULFATE 325 MG TAB PO SCH ×2 (09:34→18:06)
[2017-07-13] MEDS: DOCUSATE CALCIUM 240 MG CAP PO SCH ×2 (09:34→20:31)
[2017-07-13] MEDS: FAMOTIDINE 20 MG TAB PO SCH ×2 (09:34→20:31)
[2017-07-13] MEDS: SIMETHICONE 80 MG CHEW CHEW SCH ×4 (09:34→20:31)
[2017-07-13 11:45] VITALS: BP 114/69
[2017-07-13 15:00] VITALS: BP 119/73
[2017-07-13 21:25] VITALS: BP 111/61
[2017-07-14 02:02] VITALS: BP 113/71
[2017-07-14] MEDS: IBUPROFEN 800 MG TAB PO SCH ×2 (04:24→12:07)
[2017-07-14 07:15] VITALS: BP 108/71
[2017-07-14] MEDS: SIMETHICONE 80 MG CHEW CHEW SCH (08:31)
[2017-07-14] MEDS: FAMOTIDINE 20 MG TAB PO SCH (08:31)
[2017-07-14] MEDS: DOCUSATE CALCIUM 240 MG CAP PO SCH (08:31)
[2017-07-14] MEDS: FERROUS SULFATE 325 MG TAB PO SCH (08:31)
--- NOTE | 2017-07-14 09:14 | OB/GYN Progress Note ---
OB Subjective Progress Notes Subjective Doing good POD #3. Reports ambulation with out any difficulty. Not dizzy or light headed while ambulating. Tolerating regular diet. Voiding with out any issues. Lochia appropriate. Desires to be dc'd home. GI: NEG Nausea, NEG Vomiting, NEG Flatus, NEG Bowel Movement : Voiding Well, Vaginal Bleeding, Scant Pain: Mild, Tolerating PO Pain Meds Neurological: No Headache, No Other Eyes: No Visual Disturbances OB Objective Physical Exam Vital Signs Date Time Temp Pulse Resp B/P (MAP) Pulse Ox O2 Delivery O2 Flow Rate FiO2 07/14/17 07:15 98.1 78 16 108/71 (83) 94 Room Air 07/12/17 01:45 2.0 General Appearance: Alert/Awake/No Acute Distress Neurological: No Gross deficits Eyes: Normal Extraocular Movement & Vison, PERRLA ENT: Normal Neck: No Masses Cardiovascular: Normal Rhythm & Peripheral Pulses, Regular Rate and Rhythm Respiratory: Clear to Auscultation Abdomen: Soft, Non-Tender, Non-Distended, Bowel Sounds Present, Fundus Firm Incision: Clean, Dry, Intact, Yariel, Other (bruise noted from right angle of incision down labia majora on the right. 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 Iron BID for 30 days. Yariel to be removed prior to being discharged home. Follow up with Dr. Brunner in 2 weeks. CHARLOTTE VALENZUELA DO Jul 14, 2017 09:14
[2017-07-14 11:30] VITALS: BP 118/74
== END 2017-07-14 14:05 | disposition home or self-care (01) | DRG 765 ==
LOC: OB 18:57
PROVIDERS: ADMIT Obstetrics & Gynecology; ATTEND Obstetrics & Gynecology
PROC: 3E0P7VZ Introduction of Hormone into Female Reproductive, Via Natural or Artificial Opening (ICD-10-PCS; 2017-07-09)
PROC: 3E033VJ Introduction of Other Hormone into Peripheral Vein, Percutaneous Approach (ICD-10-PCS; 2017-07-10)
PROC: 10907ZC Drainage of Amniotic Fluid, Therapeutic from Products of Conception, Via Natural or Artificial Opening (ICD-10-PCS; 2017-07-11)
PROC: 10H07YZ Insertion of Other Device into Products of Conception, Via Natural or Artificial Opening (ICD-10-PCS; 2017-07-11)
PROC: 10D00Z1 Extraction of Products of Conception, Low, Open Approach (ICD-10-PCS; principal; 2017-07-11 19:38)
DX: O48.0 Post-term pregnancy (principal); D62 Acute posthemorrhagic anemia; O77.0 Labor and delivery complicated by meconium in amniotic fluid; O75.89 Other specified complications of labor and delivery; O90.81 Anemia of the puerperium; O62.0 Primary inadequate contractions; O65.9 Obstructed labor due to maternal pelvic abnormality, unspecified; Z37.0 Single live birth; Z88.2 Allergy status to sulfonamides; Z3A.40 40 weeks gestation of pregnancy
CPT/HCPCS: 36415; 81001; 85025; 86850; 86900; 86901; 88307; C1726; J0694; J1885; J2175; J2270; J2405; J2590; J2765; J3010; J3490; J7050; J7120; S0020